=== PATIENT | female | born 1945 | race Caucasian/White ===

== ENCOUNTER 2020-03-31 11:41 | Outpatient (REF) | payer MEDICARE, SELFPAY ==
--- NOTE | 2020-03-31 11:46 | MM_ITS ---
EXAMINATION: MM SCREENING DIGITAL BREAST TOMOSYNTHESIS, BILATERAL CLINICAL INFORMATION: Screening. Asymptomatic. The lifetime risk of breast cancer based on the Tyrer-Cuzick Model is 3%. COMPARISON: Mammography: 02/08/2018, 10/06/2016 TECHNIQUE: Digital breast tomosynthesis is performed in both the craniocaudal and mediolateral oblique views along with computer-aided detection (CAD). Synthesized 2D images are generated from the tomosynthesis. FINDINGS: There are scattered areas of fibroglandular density (ACR BI-RADS breast composition Category b). Parenchymal pattern is similar to prior studies. There are no significant masses, abnormal calcifications, or other abnormalities. No significant changes from prior studies. MM/MM tomosynthesis screening BI IMPRESSION: No mammographic evidence of malignancy. ASSESSMENT: BI-RADS 1: Negative RECOMMENDATION: Routine annual mammography screening. This patient's information was entered into a reminder system with a target due date for their next mammogram.
== END 2020-03-31 11:42 | disposition home or self-care (01) ==
LOC: HO.MAMMO 11:41
PROVIDERS: PCP Internal Medicine; Visit Provider Internal Medicine
DX: Z12.31 Encounter for screening mammogram for malignant neoplasm of breast (principal)
CPT/HCPCS: 77063; 77067

== ENCOUNTER 2022-04-01 10:50 | Outpatient (REF) | payer MEDICARE, SELFPAY ==
--- NOTE | ~2022-04-01 | XR_ITS ---
EXAMINATION: XR KNEE, RIGHT CLINICAL INFORMATION: Pain COMPARISON: None TECHNIQUE: Four views of the right knee. FINDINGS: There is reduction in tricompartment joint space with mild periarticular spurring. No bony changes or loose body seen. There is chondrocalcinosis No abnormal joint effusion. The soft tissues are normal. XR/XR knee RT 4V IMPRESSION: Mild degenerative changes right knee. No visible acute fracture, dislocation or subluxation seen. Chondrocalcinosis.
[2022-04-01 12:43] LABS: Alanine Aminotransferase 12 U/L (0-31); Albumin Level 3.9 g/dL (3.5-5.0); Alkaline Phosphatase 103 U/L (39-117); Anion Gap 15 (12-20); Aspartate Amino Transferase 14 U/L (5-31); Bilirubin Total 0.9 mg/dL (0.0-1.0); Blood Urea Nitrogen 14 mg/dL (9-16); Calcium 9.3 mg/dL (8.4-10.2); Carbon Dioxide 34 mmol/L (22-29); Chloride 99 mmol/L (96-108); Cholesterol 127 mg/dL; Estimated Glomerular Filt Rate > 60; Glucose Random 105 mg/dL (60-115); HDL Cholesterol 32 mg/dL; LDL Cholesterol Calculated 74 mg/dl; Potassium 3.6 mmol/L (3.3-5.1); Sodium 144 mmol/L (135-145); Total Protein 6.8 g/dL (6.5-8.0); Triglycerides 107 mg/dL
== END 2022-04-01 10:51 | disposition home or self-care (01) ==
LOC: HO.LAB 10:50
PROVIDERS: PCP Internal Medicine; Visit Provider Internal Medicine
DX: M25.561 Pain in right knee (principal); E78.2 Mixed hyperlipidemia; I10 Essential (primary) hypertension
CPT/HCPCS: 36415; 73564; 80053; 80061

== ENCOUNTER 2024-05-22 09:28 | Outpatient (REF) | payer MEDICARE, SELFPAY ==
[2024-05-22 12:20] LABS: Alanine Aminotransferase 8 U/L (0-31); Albumin Level 3.9 g/dL (3.5-5.0); Alkaline Phosphatase 105 U/L (39-117); Anion Gap 11 (12-20); Aspartate Amino Transferase 22 U/L (5-31); Bilirubin Total 0.7 mg/dL (0.0-1.0); Blood Urea Nitrogen 16 mg/dL (9-16); Calcium 9.7 mg/dL (8.4-10.2); Carbon Dioxide 33 mmol/L (22-29); Chloride 103 mmol/L (96-108); Cholesterol 149 mg/dL (<200); Estimated Glomerular Filt Rate > 60; Glucose Random 116 mg/dL (60-115); HDL Cholesterol 27 mg/dL (>40); LDL Cholesterol Calculated 91 mg/dL (<100); Potassium 3.8 mmol/L (3.3-5.1); Sodium 143 mmol/L (135-145); Total Protein 7.4 g/dL (6.5-8.0); Triglycerides 157 mg/dL (<150)
== END 2024-05-22 09:29 | disposition home or self-care (01) ==
LOC: HO.HHCL 09:28
PROVIDERS: Visit Provider Internal Medicine
DX: I10 Essential (primary) hypertension (principal); E78.2 Mixed hyperlipidemia
CPT/HCPCS: 36415; 80053; 80061

== ENCOUNTER 2024-05-24 13:52 | Outpatient (REF) | payer MEDICARE, SELFPAY ==
--- NOTE | ~2024-05-24 | CT_ITS ---
EXAMINATION: CT HEAD WITHOUT CONTRAST CLINICAL INFORMATION: headaches COMPARISON: CT dated September 10, 2007 TECHNIQUE: Contiguous axial imaging was performed from the skull base to vertex without intravenous administration of contrast. This CT examination was performed using dose optimization techniques as appropriate, variously including the following: *Automated exposure control *Adjustment of mA and/or kV according to patient size (this includes techniques or standardized protocols for targeted exams where dose is matched to indication/reason for exam; i.e. extremities or head) *Use of iterative reconstruction technique DLP: 741 mGy-cm FINDINGS: Bony calvarium is intact. Skull base is intact No acute intracranial hemorrhage, mass effect, midline shift, hydrocephalus or herniation. Bilateral multifocal patchy deep periventricular white matter hypodensities involving mostly the supratentorial compartment. 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 Calcified plaques in the cavernous supraclinoid segments both ICA and V4 segments, both vertebral arteries. Posterior cranial fossa contents demonstrated no acute intracranial hemorrhage. Sellar/suprasellar region demonstrated no gross masses. Craniocervical junction is intact. No air-fluid levels in the included paranasal sinuses. Tympanic cavities and mastoid antrum are aerated. Edentulous, maxilla. CT/CT head/brain wo IV con IMPRESSION: Small vessel occlusive disease. No acute intracranial hemorrhage. Electronically signed by: Tripp Quezada MD 05/28/2024 12:20 PM [facility]
== END 2024-05-24 13:53 | disposition home or self-care (01) ==
LOC: HO.CT 13:52
PROVIDERS: PCP Internal Medicine; Visit Provider Internal Medicine
DX: G44.039 Episodic paroxysmal hemicrania, not intractable (principal)
CPT/HCPCS: 70450

== ENCOUNTER → 2024-05-24 13:54 | Outpatient (BNV) | payer MEDICARE, SELFPAY | PROVIDERS: PCP Internal Medicine; Visit Provider Radiology Diagnostic Radiology | DX: I73.9 Peripheral vascular disease, unspecified (principal) | CPT/HCPCS: 70450 ==

== ENCOUNTER 2024-05-28 11:03 | Outpatient (REF) | payer MEDICARE, SELFPAY | END 2024-05-28 11:04 | disposition home or self-care (01) | LOC: HO.MAMMO 11:03 | PROVIDERS: PCP Internal Medicine; Visit Provider Internal Medicine | DX: Z12.31 Encounter for screening mammogram for malignant neoplasm of breast (principal) | CPT/HCPCS: 77063; 77067 ==

== ENCOUNTER → 2024-05-28 11:05 | Outpatient (BNV) | payer MEDICARE, SELFPAY | PROVIDERS: PCP Internal Medicine; Visit Provider Internal Medicine | DX: Z12.31 Encounter for screening mammogram for malignant neoplasm of breast (principal) | CPT/HCPCS: 77063; 77067 ==

== ENCOUNTER 2025-01-08 09:25 | Outpatient (REF) | payer MEDICARE, SELFPAY ==
--- OUTSIDE RECORDS SUMMARY | 2025-01-08 10:01 | XMS_ITS | Encounter Summary ---
Author Organization [employer] Address [address] [place] [address] Care Team Providers Care Derrick Helper Name Role Phone Keith Santiago MD Primary Care Provide r Encounter Details Date Type Department Care Team ([facility] st Contact Info) Description 01/07/2025 Telephone [facility] [address], [place] [phone] Keith Santiago MD [address] [place] [address] Social History Tobacco Use Types Packs/Day Years Used Date Smoking Tobacco: Every Day Cigarettes Passive Smoke Exposure: Current Smokeless Tobacco: Current Depression Answer Date Recorded Patient Health Questionnaire-9 Score 5 05/15/2024 Patient Health Questionnaire-9 Score 5 05/15/2024 Last PHQ-9: Questionnaire Data Not on file 1 Housing Stability Answer Date Recorded What is your housing situation today? I have sang arias 05/15/[address] you li ve. Do you have problems with any of the following? None of the above 05/15/2024 Food Insecurity Answer Date Recorded Within the past 12 months, y ou worried that your food would run out before you got money to buy more: Never True 05/15/2024 Within the past 12 months,th e food you bought just didn't last and you didn't have enough money to get more: Never True Transportation Answer Date Recorded In the past 12 months, has l ack of transportation kept you from medical appts, meetings, work or from getting things needed for daily living? No 05/15/2024 Utilities Answer Date Recorded In the past 12 months, has t he electric, gas, oil or water company threatened to shut off services in your home? No 05/15/2024 Depression Answer Date Recorded Patient Health Questionnaire-2 Score 1 05/15/2024 Internet Access Answer Date Recorded Internet Access Q1 Yes 05/15/2024 Internet Access Q2 Not on file 05/15/2024 Comments Unknown Sex and Gender Information Value Date Recorded Sex Assigned at Female 03/15/2022 10:15 AM EDT Legal Sex Female 10:15 AM EDT Gender Identity Female 03/15/2022 10:15 AM EDT Sexual Orientation Straight 03/15/2022 10 :15 AM EDT documented as of this encounter Miscellaneous Notes * Telephone Encounter - Rory Evans [place] - 01/07/2025 7:09 PM EDT Chart Prep Labs: not done BMP from 09/18/24 Images: not applicable Referrals: not applicable Vaccines due: PCV20, Tdap, RSV, and Zoster Screenings: not applicable Overdue care gaps: SDOH and ANNA-7 documented in this encounter Plan of Treatment Upcoming Encounters Date Type Department Care Team (Late st Contact Info) Description 01/08/2025 1:15 PM EDT Office Visit [facility] [address] [place] [address] Keith Santiago MD [address] [place] [phone] documented as of this encounter Visit Diagnoses Not on filedocumented in this encounter Additional Health Concerns Assessment Noted Time PHQ-9 Depression Total Score: 5 05/15/20 24 12:21 PM EST documented as of this encounter Care Teams Derrick Helper Relationship Specialty Start Date End Date Keith Santiago MD [address] [place] [id number] PCP - General Internal Medicine 03/18/14 documented as of this encounter
--- OUTSIDE RECORDS SUMMARY | 2025-01-08 10:01 | XMS_ITS | Encounter Summary ---
Author Organization [employer] Address [address] [facility] [address] [facility] [address] [place] [address] Care Team Providers Care Automation Qa Tester Name Role Phone Keith Santiago MD Primary Care Provide r Encounter Details Date Type Department Care Team (Late st Contact Info) Description 11/18/2022 Orders Only [facility] [address] [place], [place] [phone] Ama Rosen LPN Social History Tobacco Use Types Packs/Day Years Used Date Smoking Tobacco: Every Day Cigarettes Smokeless Tobacco: Current Comments Unknown Sex and Gender Information Value Date Recorded Sex Assigned at Female 03/15/2022 10:15 AM EDT Legal Sex Female 10:15 AM EDT Gender Identity Female 03/15/2022 10:15 AM EDT Sexual Orientation Straight 03/15/2022 10 :15 AM EDT documented as of this encounter Plan of Treatment Upcoming Encounters Date Type Department Care Team (Late st Contact Info) Description 01/08/2025 1:15 PM EDT Office Visit [facility] [address] [place] [address] Keith Santiago MD [address] [place], [place] [phone] documented as of this encounter Visit Diagnoses Not on filedocumented in this encounter Care Teams Automation Qa Tester Relationship Specialty Start Date End Date Keith Santiago MD [address] [place], [place] [phone] PCP - General Internal Medicine 03/18/14 documented as of this encounter
--- OUTSIDE RECORDS SUMMARY | 2025-01-08 10:01 | XMS_ITS | Encounter Summary ---
Author Organization [employer] Address [address] [facility] [address] [place] [address] Care Team Providers Care Ticket Scheduler Name Role Phone Keith Santiago MD Primary Care Provide r Encounter Details Date Type Department Care Team (Late st Contact Info) Description 09/24/2022 Orders Only [facility] [address] [place], [place] [phone] Ama Rosen LPN Social History Tobacco Use [...] Description 01/08/2025 1:15 PM EDT Office Visit [facility] [address] [place] [address] Keith Santiago MD [address] [place], [place] [phone] documented as of this encounter Visit Diagnoses Not on filedocumented in this encounter Care Teams Ticket Scheduler Relationship Specialty Start Date End Date Keith Santiago MD [address] [place], [place] [phone] PCP - General Internal Medicine 03/18/14 documented as of this encounter
--- OUTSIDE RECORDS SUMMARY | 2025-01-08 10:01 | XMS_ITS | Clinical Summary ---
Author Organization [employer] Address [address] [facility] [address] [place] [address] Care Team Providers Care Rubber Vulcanizing Machine Operator Name Role Phone Keith Santiago MD Primary Care Provide r Allergies No known active allergies Medications meloxicam (Mobic) 15 MG tabletIndication s:Pain TAKE 1 TABLET BY MOUTH EVERY DAY IF NEEDED 30 tablet 1 01/05/20 23 Active benzocaine-menth ol (Chloraseptic) 6-10 MG lozengeIndicatio ns:Sore throat Dissolve 1 lozenge in the mouth every 2 (two) hours if needed for sore throat. 100 lozenge 05/15/20 24 025 Active acetaminophen (Tylenol Extra Strength) 500 MG tabletIndication s:Episodic paroxysmal hemicrania, not intractable Take 1 tablet (500 mg) by mouth every 8 (eight) hours if needed for mild pain. 30 tablet 09/19/19 25 Active hydroCHLOROthiaz elizabteh (HYDRODiuril) 50 MG tabletIndication s:Essential (primary) hypertension TAKE 1 TABLET BY MOUTH EVERY DAY 90 tablet 1 10/12/19 25 Active atorvastatin (Lipitor) 80 MG tablet TAKE 1 TABLET BY MOUTH EVERY DAY 90 tablet 1 12/05/19 25 Active metoprolol succinate XL (Toprol-XL) 25 MG 24 hr tabletIndication s:Essential hypertension TOME 1 TABLETA POR VIA ORAL TODOS [place]. DO NOT CHEW/CRUSH 90 tablet 1 12/18/19 25 Active metoprolol succinate XL (Toprol XL) 25 MG 24 hr tabletIndication s:Essential hypertension Take 1 tablet (25 mg) by mouth Once per day. Do not crush or chew. 30 tablet 3 09/19/19 25 025 Discontinued Active Problems Problem Noted Date Diagnosed Date Elevated glucose level 09/18/2024 Assessment & Plan (09/18/2024 1:44 PM EDT): Back in 05/2024 116 Will repeat Decreased hearing of both ears 09/18/2024 Assessment & Plan (09/18/2024 1:50 PM EDT): Patient with bilateral decreased hearing and c/o tinnitus Exam shows decreased hearing Plan ENT [facility] 05/15/2024 Assessment & Plan (09/18/2024 1:35 PM EDT): Mammogram: NL : 05/28/2024 Normal Pap Smear: NL: 06/12/2009 Neg. Given age no need to continue Colonoscopy: NL : 07/15/2011 Dr Alfonso Vaccines: Flu: Declines Pneumovax: 01/09/2006 declines Td: 03/31/2012 Zoster: declines Dexa scan: 09/11/2015 Osteopenia Assessment & Plan (05/15/2024 12:40 PM EST): Mammogram: NL : 03/31/2020 Normal Pap Smear: NL: 06/12/2009 Neg. Given age no need to continue Colonoscopy: NL : 07/15/2011 Dr Alfonso Vaccines: Flu: Declines Pneumovax: 01/09/2006 declines Td: 03/31/2012 Zoster: declines Dexa scan: 09/11/2015 Osteopenia Episodic paroxysmal hemicrania, not intractable 05/15/2024 Assessment & Plan (09/18/2024 1:33 PM EDT): Resolved Work up included a CT brain 05/2024 that showed: Small vessel occlusive disease. No acute intracranial hemorrhage. Assessment & Plan (05/15/2024 12:54 PM EST): Patient here with c/o new onset of left sided hemicrania, described as shooting, intermittent, responded to Acetaminophen, Pt denies any Hx trauma, on exam no focal deficit. Plan: CT of head to rule out intracranial pathology Chronic pain of both knees 07/20/2022 Assessment & Plan (07/20/2022 11:14 AM EST): Pt here with c/o persistent bilateral knee pain right > left associated with swelling, pt having great difficulty walking, afraid of falling On previous exam, pt had large joint effusion, no redness, no increase in warmth ,nothing to suggest infection DDx, likely DJD with large joint effusion I initially recommended rest, NSAIDS, Plain films right knee showed mild degenerative changes I recommended to use a walker to avid falls, she will benefit from using a commode as well to prevent falls at night when attempting to go to bathroom Plan: Ortho eval Alopecia 07/20/2022 Assessment & Plan (07/20/2022 11:36 AM EST): Patient c/o this for months, on exam pretty evident. Plan: Obtain TSH, Derm evaluation Osteopenia 09/16/2015 Essential hypertension 08/28/2015 Assessment & Plan (09/18/2024 1:32 PM EDT): Pt here for a f/u BP currently elevated on a regimen of: Hctz 25 mg po daily Most recent electrolytes, Bun and Creatinine done on Lab Results Component Value Date NA 143 05/22/2024 NA 144 04/01/2022 K 3.8 05/22/2024 K 3.6 04/01/2022 CL 103 05/22/2024 CL 99 04/01/2022 BUN 16 05/22/2024 BUN 14 04/01/2022 CREATININE 0.88 05/22/2024 CREATININE 0.89 04/01/2022 were within normal limits. Plan: Start Toprol XL 25 mg po daily patient advised to adhere to a low sodium diet, encouraged about medication compliance, counseled about weight loss. Assessment & Plan (05/15/2024 12:54 PM EST): Pt here for a f/u BP currently stable on a regimen of: Hctz 25 mg po daily Most recent electrolytes, Bun and Creatinine done on Lab Results Component Value Date NA 144 04/01/2022 K 3.6 04/01/2022 CL 99 04/01/2022 BUN 14 04/01/2022 BUN 15 05/28/2021 CREATININE 0.89 04/01/2022 were within normal limits. today will order again Pt tells me that when she checks her BP at home is usually systolic no higher than 134 Plan: continue current regimen for now, until BMP obtained No changes to her regimen for now patient advised to adhere to a low sodium diet, encouraged about medication compliance, counseled about weight loss. Mixed hyperlipidemia 08/28/2015 Assessment & Plan (09/18/2024 1:34 PM EDT): Here for a f/u Most recent lipid profile from: Lab Results Component Value Date TRIG 157 (H) 05/22/2024 CHOL 149 05/22/2024 LDLCHOLCAL 91 05/22/2024 HDL 27 (L) 05/22/2024 She is supposed to be on a regimen of: Atorvastatin 80 mg po qhs Plan: Continue with current regimen f/u with me in 4 months advised to try to adhere to a low cholesterol diet, counseled and educated about diet and exercise, Patient encouraged to come up with a personal goal for weight loss. Assessment & Plan (05/15/2024 12:38 PM EST): Here for a f/u Most recent lipid profile from: 12/04/2020 shows a total cholesterol of: 139 triglycerides of: 125 HDL of: 33 and LDL of: 83 She is supposed to be on a regimen of: Atorvastatin 80 mg po qhs Plan: Continue with current regimen, repeat Lipid profile f/u with me in 4 months advised to try to adhere to a low cholesterol diet, counseled and educated about diet and exercise, Patient encouraged to come up with a personal goal for weight loss. Depressive disorder 03/31/2012 Smoker 03/31/2012 Resolved Problems Problem Noted Date Diagnosed Date Resolved Date Sore throat 05/15/2024 09/18/2024 Assessment & Plan (05/15/2024 1:19 PM EST): Pt c/o mild sore throat, exam unremarkable, negative Flu, Neg Covid, Neg strep Likely viral pharyngitis Plan: supportive measures, Cepacol lozenges, PRN Encounters Date Type Department Care Team Description 01/07/2025 Telephone [facility] [address] [facility] [place] [address] Keith Santiago MD 12/15/2024 Refill [facility] [address] [place] [address] Keith Santiago MD Essential hypertension 12/01/2024 Refill [facility] [address] [place], [place] [phone] Amy Mckinney ANP from Last 3 Months Immunizations Immunization Administration Dates Next Due Influenza, High Dose Seasonal, Preservative Free 02/10/2018 Influenza, IIV3, injectable 02/10/2011 Pneumococcal Polysaccharide PPSV23 01/09/2006 TD (adult), 2 Lf tetanus tox oid, preservative free, adsorbed 03/31/2012,01/26/1999 Zoster, live 08/29/2015 Social History Tobacco Use Types Packs/Day Years Used Date Smoking Tobacco: Every Day Cigarettes Passive Smoke Exposure: Current Smokeless Tobacco: Current Tobacco Cessation:Ready to Q uit: Not Asked; Counseling Given: Not Answered Depression Answer Date Recorded Patient Health Questionnaire-9 [...] Orientation Straight 03/15/2022 10 :15 AM EDT Last Filed Vital Signs Vital Sign Reading Time Taken Comments Blood Pressure 159/86 09/18/2024 1:08 PM EDT no chest pain, palpitations, or SOB Pulse 90 09/18/2024 1:08 PM EDT Temperature 36.2 C (97.1 F) 09/18/2024 1:08 PM EDT Respiratory Rate 20 09/18/2024 1:08 PM EDT Oxygen Saturation 99% 09/18/2024 1:0 8 PM EDT Inhaled Oxygen Concentration - - Weight 71.7 kg (158 lb) 09/18/2024 1:08 PM EDT Height 162.6 cm (5' 4 ) 09/18/2024 1:08 PM EDT Body Mass Index 27.12 09/18/2024 1:08 PM EDT Plan of Treatment Upcoming Encounters Date Type Department Care Team (Late st Contact Info) Description 01/08/2025 1:15 PM EDT Office Visit [facility] [address] [place] [phone] Keith Santiago MD [address] [place] [address] Health Maintenance Due Date Last Done Comments Hepatitis C Screening 11/08/1963 Pneumococcal Vaccine: 50+ Years (2 of 2 - PCV) 01/09/2007 01/09/2006 DTaP/Tdap/Td Vaccines (1 - Tdap) 04/01/2012 03/31/2012, 01/26/1999 Zoster Vaccines (2 of 3) 10/24/2015 08/29/2015 RSV Patients and Patients Aged 60 years or older (1 - 1-dose 75+ series) 2020 COVID-19 Vaccine (3 - season) 2024 08/21/2020, 07/31/2020 Influenza Vaccine (#1) 2025 02/10/2018, 2010 Depression Screening 05/15/2025 05/15/2024, 05/15/20 24 SDOH Screening 05/15/2025 05/15/2024 Mammogram 05/28/2025 05/28/2024, 03/16, 02/10/2018 Alcohol/Substance Use Screening 09/18/2025 09/18/2024 Tobacco Screening 09/18/2025 09/18/2024 Lipid Panel 05/22/2029 05/22/2024, 05/16, 12/04/2020, Additional history exists HIB Vaccines Aged Out No longer eligi ble based on patient's age to complete this topic HPV Vaccines Aged Out No longer eligi ble based on patient's age to complete this topic Hepatitis A Vaccines Aged Out No long er eligible based on patient's age to complete this topic Hepatitis B Vaccines Aged Out No long er eligible based on patient's age to complete this topic IPV Vaccines Aged Out No longer eligi ble based on patient's age to complete this topic Meningococcal B Vaccine Aged Out No l onger eligible based on patient's age to complete this topic Meningococcal Vaccine Aged Out No [place] eligible based on patient's age to complete this topic RSV under 20 months Aged Out No longe r eligible based on patient's age to complete this topic Rotavirus Vaccines Aged Out No longer eligible based on patient's age to complete this topic Procedures Procedure Name Priority Date/Time Associated Diagnosis Comments BI MAMMOGRAM SCREENING TOMOSYNTHESIS BILATERAL Routine 05/28/2024 11:05 AM EST Breast cancer screening by mammogram LIPID PANEL, STANDARD Routine 05/22/2024 9:29 AM EST Mixed hyperlipidemia from Last 3 Months or Most Recently Relevant to Health Maintenance Results * BI Mammogram Screening Tomosynthesis Bilateral (05/28/2024 11:05 AM EST) Anatomical Region Laterality Modality Breast Bilateral Mammography 05/28/2024 11:0 5 AM EST Narrative 06/05/2024 12:48 PM EST [address] [place] [address] Mammography Report Signed Patient: Amanda Ramirez MR#: [id number] 4 : 1945 Acct:[id number] Age/Sex: 78 / F ADM Date: 05/28/24 Loc: HO.MAMMO Attending Dr: Keith Edwards MD Ordering Physician: Keith Edwards MD Resu lts: 1Negative Date of Service: 05/28/24 Follow Up: 1 Year From Orig inal Mammogram Procedure(s): MM tomosynthesis screening BI Accession Number(s): [id number] cc: Keith Edwards MD EXAMINATION: MM SCREENING DIGITAL BREAST TOMOSYNTHESIS, BILATERAL CLINICAL INFORMATION: Screening. Asymptomatic. COMPARISON: Mammography: Comparison is made with available priors TECHNIQUE: Digital breast mammography with tomosynthesis is performed in both the craniocaudal and mediolateral oblique views along with computer-aided detection (CAD). FINDINGS: There are scattered areas of fibroglandular density (ACR BI-RADS breast composition Category b). There are no significant masses, abnormal calcifications, or other abnormalities. MM/MM tomosynthesis screening BI IMPRESSION: No mammographic evidence of malignancy. ASSESSMENT: BI-RADS BI-RADS 1 - Negative RECOMMENDATION: Routine annual mammography screening. 1 year F/U This examination should not preclude the clinical evaluation of a suspicious palpable abnormality. This patient's information was entered into a reminder system with a target due date for their next mammogram. Electronically signed by: Joann Lopez DO 06/05/2024 12:45 PM EST Dictated By: Joann Lopez DO Signed By: <Electronically signed by Joann Lopez DO in OV> 06/05/24 1245 DD/ 1105 TD/TT: 05/28/24 1125 Placement Coordinator: Procedure Note Donotuseinterpreter, Image - 06/05/[address] [place] [address] Mammography Report Signed Patient: Amanda Ramirez LMR#: [id number] 4 : 1946Acct:[id number] Age/Sex: 78 / FADM Date: 05/28/24 Loc: HO.MAMMO Attending Dr: Keith Edwards MD Ordering Physician: Keith Edwards MDResu lts: 1Negative Date of Service: 05/28/24Follow Up: 1 Year From Orig inal Mammogram Procedure(s): MM tomosynthesis screening BI Accession Number(s): [id number] cc: Keith Edwards MD EXAMINATION: MM SCREENING DIGITAL BREAST TOMOSYNTHESIS, BILATERAL CLINICAL INFORMATION: Screening. Asymptomatic. COMPARISON: Mammography: Comparison is made with available priors TECHNIQUE: Digital breast mammography with tomosynthesis is performed in both the craniocaudal and mediolateral oblique views along with computer-aided detection (CAD). FINDINGS: There are scattered areas of fibroglandular density (ACR BI-RADS breast composition Category b). There are no significant masses, abnormal calcifications, or other abnormalities. MM/MM tomosynthesis screening BI IMPRESSION: No mammographic evidence of malignancy. ASSESSMENT: BI-RADS BI-RADS 1 - Negative RECOMMENDATION: Routine annual mammography screening. 1 year F/U This examination should not preclude the clinical evaluation of a suspicious palpable abnormality. This patient's information was entered into a reminder system with a target due date for their next mammogram. Electronically signed by: Joann Lopez DO 06/05/2024 12:45 PM EST Dictated By: Joann Lopez DO Signed By: <Electronically signed by Joann Lopez DO in OV> 06/05/24 1245 DD/ 1105 TD/TT: 05/28/24 1125 Placement Coordinator: us Keith Atkins MD IMG BI PROCEDURES Buzz anya Result - Final * (ABNORMAL) Lipid Panel, Standard (05/22/2024 9:29 AM EST) Triglycerides 157(H) <150 mg/dL [facility] Comment:Desirable Triglyceri de: less than 150 mg/dLBorderline High Triglyceride 150-199 mg/dLHigh Triglyceride: 200-499 mg/dLVery High Triglyceride: greater than or equal to 5OO mg/dL Cholesterol 149 <200 mg/dL [facility] Comment:Desirable Cholestero l: less than 200 mg/dLBorderline High Cholesterol: 200-239 mg/dLHigh Cholesterol: greater than 239 mg/dL LDL Cholesterol Calculated 91 <100 mg/dL [facility] Comment:Desirable LDL: less than 100 mg/dLNear Optimal/Above Optimal LDL: 110- 129 mg/dLBorderline High LDL: 130-159 mg/dLHigh LDL: 160-189 mg/dLVery High LDL: greater than or equal to 190 mg/dL HDL Cholesterol 27(L) >40 mg/dL [facility] Comment:Desirable HDL: great er than 40 mg/dL Note: This HDL assay may give artificially low results in patients with liver disease. Blood Venous blood specimen / Unknown 05/22/2024 9:29 AM EST 05/22/2024 11:39 AM EST us Keith Atkins MD LAB BLOOD ORDERABLES Final Result Performing Organization Address City/State/[facility] Co de Phone Number [facility] [address] [place] [address] [phone] from Last 3 Months or Most Recently Relevant to Health Maintenance Insurance [facility] MEDICARE ADVANTAGE HMO Care Teams Rubber Vulcanizing Machine Operator Relationship Specialty Start Date End Date Keith Santiago MD [address] [place] [address] [place] [address] PCP - General Internal Medicine 03/18/14
[2025-01-08 11:25] LABS: Anion Gap 15 (12-20); Blood Urea Nitrogen 19 mg/dL (9-16); Calcium 9.5 mg/dL (8.4-10.2); Carbon Dioxide 32 mmol/L (22-29); Chloride 99 mmol/L (96-108); Estimated Glomerular Filt Rate 56; Potassium 3.5 mmol/L (3.3-5.1); Sodium 142 mmol/L (135-145)
== END 2025-01-08 09:26 | disposition home or self-care (01) ==
LOC: HO.HHCL 09:25
PROVIDERS: PCP Internal Medicine; Visit Provider Internal Medicine
DX: I10 Essential (primary) hypertension (principal)
CPT/HCPCS: 36415; 80048